=== PATIENT | male | born 1990 | race Hispanic/Latino ===

== ENCOUNTER 2024-01-11 13:23 | Emergency (ER) | payer SELFPAY ==
[2024-01-11 13:26] VITALS: BP 140/79
--- NOTE | 2024-01-11 14:10 | ED.GENMED ---
History of Present Illness
General
Chief Complaint: Eye Problems
Source: patient
Time Seen by Provider: 01/11/24 13:44
History of Present Illness
History of Present Illness:
33-year-old male presenting to the emergency department for evaluation after he was at work and while working on an older car accidentally got struck by what he believes to be a small piece of metal within the right eye, was not wearing protective
eyewear at the time. He notes continued mild foreign body sensation and small area of hemorrhage along the medial asked of the eye. No visual disturbances and no other injuries sustained.
Past History
Past History
ED Past Medical History: None
ED Past Surgical History: Orthopedic
Social History
Tobacco: Non-smoker
Alcohol: None
Drug: None
Personal: Single
Living: with family
Review of Systems
Review of Systems
All Other Systems: ROS reviewed and negative except as documented in HPI and ROS
Phy Exam
Physical Exam
Physical Exam:
GENERAL: Alert , in no apparent distress
EYE: Medial aspect of conjunctive has small subconjunctival hemorrhage, no visualized foreign body, pupils 4 mm bilateral, EOMI, no periorbital ecchymosis or edema
Fluorescein stain: Small uptake within the central portion of the subconjunctival hematoma. Measures proximately 1mm in size
Slit Lamp: corneal abrasion again seen but no FB
Head : Normocephalic atraumatic
NECK: Supple,
ENT: mmm.
LUNGS: no acute respiratory distress
NEUROLOGICAL: Alert and oriented
SKIN: Warm and dry, skin intact.
MUSCULOSKELETAL: well perfused.
PSYCH: Normal and appropriate interaction.
Scores
Heart Failure Risk
Heart Failure Risk Score: Not Applicable
Heart Score for Chest Pain Patients
STEMI patient?: Not applicable
Withdrawal Assessment of Alcohol
Withdrawal Assessment Completed?: Not applicable
Course
Orders/Labs/Results
Orders:
Orders
01/11/24 14:39
Tetracaine HCl [Tetracaine 0.5% Ophthalmic Solution] 1 drop .ROUTE .STK-MED ONE
01/11/24 14:40
Fluorescein Sodium [Ful-Noemy] 1 mg .ROUTE .STK-MED ONE
Purified Water Eye Wash [Dacriose Eye Wash Solution] 120 ml .ROUTE .STK-MED ONE
Vital Signs
Initial and Last Documented VS:
Initial Vital Signs
Temp Pulse Resp BP Pulse Ox
98.0 F 53 16 140/79 98
01/11/24 13:26 01/11/24 13:26 01/11/24 13:26 01/11/24 13:26 01/11/24 13:26
Last Documented Vital Signs
Temp Pulse Resp BP Pulse Ox
98.0 F 53 16 140/79 98
01/11/24 13:26 01/11/24 13:26 01/11/24 13:26 01/11/24 13:26 01/11/24 13:26
MDM/Problems Addressed
Differential Diagnosis Includes:
corneal abrasion, foreign body, subconjunctival hemorrhage
MDM/Problems Addressed:
33-year-old male presenting emergency department for evaluation after he had gotten struck in the right eye by what he believes to be a small piece of metal. Subconjunctival hemorrhage noted. On fluorescein stain patient did have a small corneal
abrasion but no foreign body. Will treat with topical antibiotic drops. Patient is going to be following up with [employer]. He is aware of return precautions ER but otherwise stable for discharge home.
*Pulse Oximetry
Patient hypoxic: no
*Critical Care Note
Total Time (30-74mins, 75-104mins- exclusive of procedures): Not Applicable
ED Attending Note
-
Portions of this chart may have been created with voice recognition software.� Occasional wrong word or��sound alike� substitutions may have occurred due to the inherent limitations of voice recognition software.
Discharge Plan
Departure
Patient Disposition: Home (Routine Discharge)
Date of Disposition: 01/11/24
Time of Disposition: 14:10
Patient with high blood pressure during this ER visit?: Yes
Discharge Problem:
Injury of conjunctiva and corneal abrasion of right eye w/o FB, Traumatic subconjunctival hemorrhage of right eye
Instructions: Corneal Abrasion (DC), Subconjunctival Hemorrhage
Prescriptions:
New
ofloxacin [Ocuflox] 0.3 % drops
2 drp ophthalmic (eye) QID 5 Days Qty: 5 0RF
Referrals:
NONE,* [Family Provider] -
Interventions
Interventions:
*Risk Screen - Suicide Last Done: 01/11/24 14:27
*General Assessment Last Done: 01/11/24 14:27
*Nursing Disposition Last Done: 01/11/24 14:27
Discharge Date and Time
Discharge Date/Time: 01/11/24 14:28
Print Language: [place]
== END 2024-01-11 14:28 | disposition home or self-care (01) ==
LOC: EMR 13:23
PROVIDERS: EMERGENCY PHYSICIAN Student in an Organized Health Care Education/Training Program
DX: S05.01XA Injury of conjunctiva and corneal abrasion without foreign body, right eye, initial encounter (principal); H11.31 Conjunctival hemorrhage, right eye; W22.8XXA Striking against or struck by other objects, initial encounter; Y93.89 Activity, other specified; Y92.89 Other specified places as the place of occurrence of the external cause; Y99.0 Civilian activity done for income or pay
CPT/HCPCS: 99283

== ENCOUNTER 2025-02-01 12:07 | Emergency (ER) | payer SELFPAY ==
[2025-02-01 12:08] VITALS: BP 125/75
--- NOTE | 2025-02-01 12:23 | ED.MUSCINJ ---
HPI-Injury
General
Chief Complaint: Musculo-Skeletal Complaint
Source: patient
Exam Limitations: none
Time Seen by Provider: 02/01/25 12:15
Nursing documentation reviewed up to this point in time: agreed with
History of Present Illness-Injury
Initial Injury comments:
34-year-old male presents from work at [employer] for pain in the right forearm and biceps area. He states he had both his hands above his head holding up a subframe of a transmission, as they were slowly lowering it, it slipped a little putting
sudden pressure onto his right arm and he felt a pop in his right bicep and forearm areas. Pain is minimal at rest at 2/10. With flexing it gets a little worse. He denies distal numbness or tingling or weakness.
Past History
Past History
ED Past Medical History: None
ED Past Surgical History: Orthopedic (Torn meniscus right knee)
Social History
Tobacco: Non-smoker
Alcohol: None
Drug: None
Personal: Single
Living: with family
Review of Systems
Review of Systems
Allergies reviewed?: Yes
All Other Systems: ROS reviewed and negative except as documented in HPI and ROS
Phy Exam
Physical Exam
Physical Exam:
PHYSICAL EXAMINATION:
General: no apparent distress, not acutely ill
Neuro: alert and oriented.
Cardiac: RRR
Lungs: CTA
Psychiatric: well kept. interactive and cooperative
Musculoskeletal: Moves with ease. RUE: Full ROM, mild tenderness anteriorly over proximal forearm and distal biceps. Mild 'Ethan' bulge with flexion. Distal n/v intact.
Skin: Warm, pink.
Injury Course
Orders/Labs/Results
Orders:
Orders
02/01/25 12:12
CR Elbow - Right Min 3 Views Urgent
Comment:
Reason For Exam: injury
02/01/25 13:19
Sling Right-Treatment ONCE
MDM/Problems Addressed
Differential Diagnosis Includes:
Biceps tendon rupture, muscle strain
MDM/Problems Addressed:
34-year-old male presents from work at [employer] for pain in the right forearm and biceps area. He states he had both his hands above his head holding up a subframe of a transmission, as they were slowly lowering it, it slipped a little putting
sudden pressure onto his right arm and he felt a pop in his right bicep and forearm areas. Pain is minimal at rest at 2/10. With flexing it gets a little worse. He denies distal numbness or tingling or weakness.
*Radiology
Radiology exam reviewed: preliminary read by ED provider (No acute abnormality noted)
*Pulse Oximetry
SaO2: 98
Oxygen Mode of Delivery: Room air
Patient hypoxic: not evaluated
*Critical Care Note
Total Time (30-74mins, 75-104mins- exclusive of procedures): Not Applicable
ED Attending Note
-
Portions of this chart may have been created with voice recognition software.� Occasional wrong word or��sound alike� substitutions may have occurred due to the inherent limitations of voice recognition software.
Discharge Plan
Departure
Patient Disposition: Home (Routine Discharge)
Date of Disposition: 02/01/25
Time of Disposition: 13:21
Patient with high blood pressure during this ER visit?: No
Condition: Good
Discharge Problem:
Injury of tendon of biceps
Instructions: Biceps Tendon Rupture
Prescriptions:
No Action
ofloxacin [Ocuflox] 0.3 % drops
2 drp ophthalmic (eye) QID 5 Days Qty: 5 0RF
Referrals:
Toni Alegre MD [Active, Orthopedics] - Next open appointment
NONE,* [Family Provider, Internal Medicine]
Activity Restrictions/Additional Instructions:
As we discussed, you MAY have ruptured biceps tendon. No lifting with right arm.
Call and make orthopedic appointment.
Tylenol or Ibuprofen as needed for pain.
Wear the sling when up and around until further instructed by the orthopedic doctor.
Interventions
Interventions:
*General Assessment Last Done: 02/01/25 12:08
*Nursing Disposition Last Done: 02/01/25 14:01
ED-Musculoskeletal Assessment Last Done: 02/01/25 12:46
Discharge Date and Time
Discharge Date/Time: 02/01/25 14:01
Print Language: [place]
== END 2025-02-01 14:01 | disposition home or self-care (01) ==
LOC: EMR 12:07
PROVIDERS: EMERGENCY PHYSICIAN Emergency Medicine
DX: S46.201A Unspecified injury of muscle, fascia and tendon of other parts of biceps, right arm, initial encounter (principal); X50.0XXA Overexertion from strenuous movement or load, initial encounter; Y92.59 Other trade areas as the place of occurrence of the external cause; Y99.0 Civilian activity done for income or pay
CPT/HCPCS: 99283; 73080